=== PATIENT | female | born 1975 | race Caucasian/White ===

== ENCOUNTER 2018-09-21 09:45 | Emergency (ER) | payer OTHER ==
[~2018-09-21] VITALS: Ht 167.6 cm; Wt 131.8 kg
[2018-09-21] MEDS ORDERED: METH2.5T48 (09:52)
[2018-09-21] MEDS ORDERED: HYDR25TAB (09:52)
[2018-09-21] MEDS ORDERED: GABA-845 (09:52)
[2018-09-21] MEDS ORDERED: OMEP40CA2 (09:52)
[2018-09-21] MEDS ORDERED: LEUC10TA (09:52)
[2018-09-21] MEDS ORDERED: FLUTISP (09:52)
[2018-09-21] MEDS ORDERED: MORP-38 (09:52)
[2018-09-21] MEDS ORDERED: AZEL1SPR3 (09:52)
[2018-09-21] MEDS ORDERED: FOLI1TAB11 (09:52)
[2018-09-21] MEDS ORDERED: TRAM50TA2 (09:52)
[2018-09-21] MEDS ORDERED: LIDOCAINE 2% MDV 20 ML VIAL SC ONE (10:15)
[2018-09-21] MEDS ORDERED: ADACEL/BOOSTRIX VACCINE (DIPHTH/PERTUSS/ACELL/TETANUS)0.5ML SYR (90715) IM ONE (10:15)
[2018-09-21 10:45] VITALS: BP 141/80
== END 2018-09-21 10:50 | disposition home or self-care (01) ==
LOC: M ED 09:45
DX: S61.012A Laceration without foreign body of left thumb without damage to nail, initial encounter (principal); W26.0XXA Contact with knife, initial encounter; Y92.59 Other trade areas as the place of occurrence of the external cause; Y93.G1 Activity, food preparation and clean up; Y99.0 Civilian activity done for income or pay; Z79.899 Other long term (current) drug therapy; Z88.0 Allergy status to penicillin

== ENCOUNTER 2019-02-12 20:55 | Emergency (ER) | payer OTHER ==
[~2019-02-12] VITALS: Ht 165.1 cm; Wt 135.1 kg
[~2019-02-12 20:55] MED LIST: AZEL1SPR3; FLUTISP; FOLI1TAB11; GABA-845; HYDR25TAB; LEUC10TA; METH2.5T48; MORP-69; OMEP40CA2; TRAM50TA2
[2019-02-12 21:21] LABS: BASO % 0.4 % (0.0-1.0); EOS # 0.1 10^3/uL (0.0-0.50); EOS % 1.2 % (0.0-3.0); HEMATOCRIT 37.5 % (36.0-47.0); HEMOGLOBIN 11.7 g/dl (12.0-15.5); LYMPH # 2.6 10^3/uL (1.5-4.5); LYMPH % 28.2 % (24.0-44.0); MEAN CORPUSCULAR HEMOGLOBIN 26.6 pg (27.0-33.0); MEAN CORPUSCULAR HGB CONC 31.2 g/dl (32.0-36.5); MEAN CORPUSCULAR VOLUME 85.2 fl (80.0-96.0); MONO # 0.6 10^3/uL (0.0-0.8); MONO % 6.5 % (0.0-5.0); NEUTROPHILS # 5.9 10^3/uL (1.8-7.7); NEUTROPHILS % 63.5 % (36.0-66.0); PLATELET COUNT, AUTOMATED 343 10^3/uL (150-450); WHITE BLOOD COUNT 9.3 10^3/uL (4.0-10.0)
[2019-02-12 21:41] LABS: HCG, SERUM QUALITATIVE NEGATIVE (NEGATIVE)
[2019-02-12 21:42] LABS: ALBUMIN 3.3 GM/DL (3.2-5.2); ALT/SGPT 27 U/L (12-78); BILIRUBIN,DIRECT 0.1 MG/DL (0.0-0.2); BILIRUBIN,TOTAL 0.5 MG/DL (0.2-1.0); BLOOD UREA NITROGEN 7 MG/DL (7-18); CALCIUM LEVEL 8.2 MG/DL (8.5-10.1); CARBON DIOXIDE LEVEL 29 MEQ/L (21-32); CHLORIDE LEVEL 106 MEQ/L (98-107); CREATININE FOR GFR 0.85 MG/DL (0.55-1.30); GLOMERULAR FILTRATION RATE > 60.0 (>58); GLUCOSE, FASTING 94 MG/DL (70-100); LIPASE 449 U/L (73-393); SODIUM LEVEL 142 MEQ/L (136-145); TOTAL PROTEIN 6.6 GM/DL (6.4-8.2)
[2019-02-13] MEDS ORDERED: DICYCLOMINE 10 MG CAP PO ONE (01:00)
[2019-02-13] MEDS ORDERED: ONDANSETRON 4MG/2ML VIAL (J2405) IV ONE (01:00)
[2019-02-13] MEDS ORDERED: NS 1,000 ML IV ONE (01:00)
[2019-02-13] MEDS ORDERED: DICY10CA13 PO (02:37)
[2019-02-13] MEDS ORDERED: ZOFR4TAB16 PO (02:37)
[2019-02-13 02:53] VITALS: BP 126/82
== END 2019-02-13 02:54 | disposition home or self-care (01) ==
LOC: M ED 20:55
DX: R10.84 Generalized abdominal pain (principal); R11.0 Nausea; R19.7 Diarrhea, unspecified; R79.89 Other specified abnormal findings of blood chemistry; M06.9 Rheumatoid arthritis, unspecified; Z79.899 Other long term (current) drug therapy
CPT/HCPCS: 80048; 80076; 81001; 83690; 84703; 85025; 93041; 96374; 99284; J2405